=== PATIENT | male | born 1945 | race Caucasian/White ===

== ENCOUNTER 2019-01-25 09:06 | Emergency (ER) | payer OTHER ==
[~2019-01-25] VITALS: Ht 188 cm; Wt 94.3 kg
[2019-01-25 09:17] VITALS: Ht 188 cm; Wt 94.3 kg
[2019-01-25 11:10] VITALS: BP 150/81
== END 2019-01-25 11:10 | disposition home or self-care (01) ==
LOC: ED 09:06
DX: J40 Bronchitis, not specified as acute or chronic (principal); I10 Essential (primary) hypertension
CPT/HCPCS: J7512